=== PATIENT | female | born 2000 | race Caucasian/White ===

== ENCOUNTER 2022-07-29 06:00 | Day surgery (SDC) | payer OTHER ==
[~2022-07-29] VITALS: Ht 172.7 cm; Wt 226.3 kg
[2022-07-29 07:47] LABS: HCG,QUAL RESULT NEGATIVE (NEGATIVE)
[2022-07-29] MEDS: MIDAZOLAM HCL 5 MG/5 ML VIAL ONE ×3 (08:30→08:35)
[2022-07-29] MEDS: MEPERIDINE 100 MG INJ. 100 MG/ML VIAL ONE ×3 (08:30→08:35)
[2022-07-29] MEDS ORDERED: DIPHENHYDRAMINE INJ 50 MG/ML VIAL ONE (08:39)
[2022-07-29] MEDS ORDERED: MIDAZOLAM HCL 5 MG/5 ML VIAL ONE (08:39)
[2022-07-29 14:25] VITALS: BP_SYST 136
== END 2022-07-29 09:45 | disposition home or self-care (01) ==
LOC: SMU 06:00 → SDS 06:00
PROVIDERS: ATTEND Internal Medicine Gastroenterology
DX: E66.01 Morbid (severe) obesity due to excess calories (principal); K29.50 Unspecified chronic gastritis without bleeding; K44.9 Diaphragmatic hernia without obstruction or gangrene; Z79.899 Other long term (current) drug therapy; Z68.45 Body mass index [BMI] 70 or greater, adult
CPT/HCPCS: 87426; 36415 ×2; 43239; 87081; 84703; 88305; 88312; 88313; 99152; G0378; J1200; J2250; J2175